=== PATIENT | female | born 1985 | race Caucasian/White ===

== ENCOUNTER 2020-08-06 17:40 | Emergency (ER) | payer SELFPAY ==
[2020-08-06 17:49] VITALS: BP 128/81; PULSE 95; TEMP 98.3; BMI 21.7
== END 2020-08-06 18:03 | disposition home or self-care (01) ==
LOC: JER 17:40
DX: Z11.52 Encounter for screening for COVID-19 (principal)
CPT/HCPCS: 99284-25; C9803; U0003